=== PATIENT | female | born 1980 | race African-American/Black ===

== ENCOUNTER 2019-01-15 21:09 | Emergency (ER) | payer MEDICAID, MEDICARE ==
[~2019-01-15] VITALS: Ht 165.1 cm; Wt 55.0 kg
[2019-01-15 21:12] VITALS: BP 131/83
[2019-01-15] MEDS ORDERED: ACETAMINOPHEN 500MG TABLET PO ONE (22:15)
[2019-01-15] MEDS ORDERED: LIDOCAINE HCL/PF 1% 10 MG/ML 5ML VIAL IJ ONE (22:15)
[2019-01-15] MEDS ORDERED: TETANUS, DIPHTHERIA, PERTUSSIS VAC/PF 0.5ML (>7YR OLD) IM ONE (22:15)
[2019-01-15] MEDS ORDERED: BACITRACIN ZINC OINT UDPKT TOP ONE (22:15)
== END 2019-01-15 23:57 | disposition home or self-care (01) ==
LOC: ER 21:09
DX: S61.215A Laceration without foreign body of left ring finger without damage to nail, initial encounter (principal); Z88.6 Allergy status to analgesic agent; W25.XXXA Contact with sharp glass, initial encounter; Y93.89 Activity, other specified; Y92.89 Other specified places as the place of occurrence of the external cause; Y99.8 Other external cause status
CPT/HCPCS: 12001; 73130; 90471; 90715; 99283; J3490; Z7610

== ENCOUNTER 2022-05-14 00:21 | Emergency (ER) | payer MEDICAID, MEDICARE, OTHER ==
[~2022-05-14] VITALS: Ht 162.6 cm; Wt 58.0 kg
[2022-05-14] MEDS ORDERED: FLUORESCEIN SODIUM 1MG/STRIP RIGHTEYE ONE (02:30)
[2022-05-14] MEDS ORDERED: ACETAMINOPHEN 325MG TABLET PO ONE (02:30)
[2022-05-14] MEDS ORDERED: BACITRACIN ZINC OINT UDPKT TOP ONE (02:30)
[2022-05-14] MEDS ORDERED: TETANUS, DIPHTHERIA, PERTUSSIS VAC/PF 0.5ML (>10YR OLD) IM ONE (02:30)
[2022-05-14] MEDS ORDERED: LIDOCAINE HCL/PF 1% 10 MG/ML 5ML VIAL INFIL ONE (02:30)
[2022-05-14] MEDS ORDERED: TETRACAINE 0.5% OPHTH DROPS 4ML RIGHTEYE ONE ×2 (02:30→02:45)
[2022-05-14] MEDS ORDERED: FLUORESCEIN SODIUM 1MG/STRIP LEFTEYE ONE (02:45)
[2022-05-14 06:45] VITALS: BP 109/65
== END 2022-05-14 07:29 | disposition short-term general hospital (02) ==
LOC: ER 00:21
DX: S01.111A Laceration without foreign body of right eyelid and periocular area, initial encounter (principal); R51.9 Headache, unspecified; Y04.0XXA Assault by unarmed brawl or fight, initial encounter; Y93.89 Activity, other specified; Y92.89 Other specified places as the place of occurrence of the external cause; Y99.8 Other external cause status
CPT/HCPCS: 12013; 99284; 99285